=== PATIENT | female | born 1970 | race Caucasian/White ===

== ENCOUNTER 2017-07-28 19:26 | Inpatient (IN) | payer OTHER ==
[2017-07-28 20:07] LABS: Bilirubin Negative (Negative); Blood, Urine Small (Negative); Clarity CLEAR (Clear); Glucose, Urine (Dipstick) Negative (Negative); Leukocyte Small (Negative); Nitrite Negative (Negative); Protein, Urine (Dipstick) Negative (Neg-Trace); Specific Gravity, Urine 1.035 (1.002-1.036); Urobilinogen 0.2 mg/dL (0.2-1.0)
[2017-07-28 20:09] LABS: Bacteria/HPF 2+ HPF (None Seen); Hyaline Casts/LPF 0-3 HYALINE CAST LPF (0-3 Hyaline); Pathc Cast-AUWi Flag 0.13 (0-2.49)
[2017-07-28] MEDS ORDERED: Fentanyl 100 MCG/2 ML VIAL ONE (20:54)
[2017-07-28] MEDS ORDERED: Lorazepam 2 MG/ML VIAL SLOW IVP PRN (22:06)
[2017-07-28] MEDS ORDERED: cloNIDine 0.1 MG TAB PO PRN (22:06)
[2017-07-28] MEDS ORDERED: Calcium Carbonate 500 MG ChewTAB PO PRN (22:06)
[2017-07-28] MEDS ORDERED: Ondansetron PF 4 MG/2 ML Vial IVP PRN (22:06)
[2017-07-28] MEDS ORDERED: Loratadine 10 MG TAB PO PRN (22:06)
[2017-07-28] MEDS ORDERED: traMADol HCl 50 MG TAB PO PRN (22:06)
[2017-07-28] MEDS ORDERED: Benzonatate 100 MG CAP PO PRN (22:06)
[2017-07-28] MEDS ORDERED: Diabetic Tussin 200 MG/10 ML UDCUP PO PRN (22:06)
[2017-07-28] MEDS ORDERED: Mag-Al 1200 mg/1200 mg/30 ML UDCUP PO PRN (22:06)
[2017-07-28] MEDS ORDERED: Famotidine/PF 20 mg/2ml Vial SLOW IVP PRN (22:06)
[2017-07-28] MEDS ORDERED: Acetaminophen 325 MG TAB PO PRN (22:06)
[2017-07-28] MEDS ORDERED: Nitroglycerin 0.4 MG TAB (25 Tab Bottle) SL PRN (22:06)
[2017-07-28] MEDS ORDERED: hydrALAZINE 20 MG/ML VIAL SLOW IVP PRN (22:06)
[2017-07-28] MEDS ORDERED: HYDROmorphone 0.5 MG/0.5 ML SYRINGE ONE (22:28)
--- NOTE | 2017-07-28 22:37 | RAD ---
KUB AND UPRIGHT AND PA CHEST: 07/28/17 HISTORY: Abdominal pain and distention. There is air within some slightly distended small bowel loops but also air within the colon. No free air. Postoperative changes which appear to be related to gastric bypass and cholecystectomy are seen. PA CHEST: Heart size and mediastinum are within normal limits. The lungs are clear of any infiltrative process. IMPRESSION: Fairly minimal small bowel distention, also with air within the colon. This is not definitively an ob structed pattern. If there is clinical suspicion of obstruction, CT may be helpful in further assessm ent. POS: ISABEL
[2017-07-29] MEDS ORDERED: Ketorolac Tromethamine 30 MG/ML VIAL IVP SCH (01:00)
[2017-07-29] MEDS: Promethazine HCl 25 MG/ML VIAL SLOW IVP PRN ×4 (01:28→22:11)
[2017-07-29 09:48] LABS: Folate (Folic Acid) 12.4 ng/mL (7.0-31.4)
[2017-07-29] MEDS: Pantoprazole 40 MG VIAL IVP SCH ×2 (11:15→21:57)
--- NOTE | 2017-07-29 13:12 | HP ---
CHIEF COMPLAINT: Epigastric abdominal pain. HISTORY OF PRESENT ILLNESS: A 46-year-old female, who underwent a laparoscopic Coco-en-Y gastric byp ass at [facility] in [place] [address] Jefferson. She went from 265 pounds to 89 pounds. S he had postoperative hyperemesis, postoperative excess weight loss, and severe dysphagia. At 6 month s postop, she was found to have an internal hernia, which was repaired laparoscopically. She then schuster d a laparoscopic cholecystectomy and umbilical hernia surgery. She then developed multiple bowel obs tructions and had to have exploratory laparotomy. She was found to have an intussusception and that was treated through a laparotomy. She also had an appendectomy, this was all done at [facility]. Then, Dr. Davis at [facility] in [place] found 8 abdominal wall surgeries, it was juan ated with mesh 1.5 years ago. She has had chronic nausea, chronic abdominal pain. She is not vomiti ng. She is passing flatus. She denies dark urine, fever or chills. PAST MEDICAL HISTORY: Hypertension and neuropathy. PAST SURGICAL HISTORY: section x4 and all the surgeries above. MEDICATIONS: Lisinopril 40 mg, hydrochlorothiazide 25 mg, amlodipine, promethazine 25 mg, and gabape ntin 800 mg t.i.d. ALLERGIES: No known drug allergies. SOCIAL HISTORY: She is . She smokes half a pack per day and no alcohol. PHYSICAL EXAMINATION: VITAL SIGNS: Afebrile, pulse 61, blood pressure 119/78. GENERAL: A thin female, awake, alert, in no apparent distress. HEENT: Unremarkable. LUNGS: Clear. HEART: Regular rate and rhythm. ABDOMEN: Soft, but tender in the epigastric area. I do not feel any recurrent hernias. LABORATORY AND X-RAY FINDINGS: Her white count is 10.9, hemoglobin and hematocrit 10 and 31, platele t count 288. Electrolytes are fine. Alkaline phosphatase was elevated at 138. CT scan of abdomen w as reviewed with Dr. Morrissey, it was performed at the [facility] in [place], it showed 1 lo op of bowel, distended bowel in the pelvis that looked like it had some fecalization of material with in and it was somewhat distended, but there was air in it. Other than that, there was no evidence of obstruction. There is a lot of air in the colon. No free air, no free fluid. ASSESSMENT: 1. Post-gastric bypass patient, who is smoking, is at high risk for gastrojejunostomy ulceration tere y likely cause of her epigastric pain. 2. High chance she may be vitamin deficient, which may have resulted in neuropathy, possible thiamin e deficiency. 3. This abnormal loop of bowel, which is in the pelvis, does not appear to be symptomatic at this ti me. She may have a bacterial overgrowth in this loop, it may need to be repaired at some point in th e future. PLAN: Stop smoking. Recommend EGD. Protonix. Check thiamine level, but also infuse thiamine. I r ecommended the patient to go to see Dr. Lele Valentine at [facility] in [place].
[2017-07-29] MEDS ORDERED: Lidocaine 1% PF 5 ML VIAL ONE (14:31)
[2017-07-29] MEDS ORDERED: PROPOFOL 200 MG/20 ML VIAL ONE (14:31)
[2017-07-29] MEDS ORDERED: Midazolam HCl 2 mg/2 ml Vial ONE (15:57)
[2017-07-29] MEDS ORDERED: Fentanyl 100 MCG/2 ML VIAL ONE (16:06)
--- NOTE | 2017-07-30 | OP ---
DATE OF PROCEDURE: 07/29/2017 OPERATIVE PROCEDURE: Esophagogastrojejunoscopy. PREOPERATIVE DIAGNOSIS: Abdominal pain. POSTOPERATIVE DIAGNOSIS: Normal exam. PROCEDURE IN DETAIL: The patient was placed in the left lateral position and was given sedation by A nesthesia Department. A Pentax video gastroscope under direct vision was passed down the oropharynx, past the gastroesophageal junction, into the small bowel. The patient has had a previous gastric by pass. The esophageal mucosa appeared normal throughout the stomach. The GE junction, no pathology. The gastric remnant is very small and appears healthy. The anastomotic area appears very healthy. No inflammation, any mucosal erythema, or any ulcers. The exam was completely normal. The scope was advanced down the small bowel as far as possible. The mucosa appeared normal throughout the small b owel. The small bowel decompressed and the scope removed. IMPRESSION: Negative exam. It is possible her abdominal pain may be because of her postoperative ad hesions versus irritable bowel syndrome.
--- NOTE | 2017-07-30 00:11 | CON ---
DATE OF CONSULTATION: 07/29/2017 REFERRING PHYSICIAN: Zbigniew Patel M.D. REASON FOR CONSULTATION: Abdominal pain. HISTORY OF PRESENT ILLNESS: Ms. Keyana Nielsen is a 46-year-old female with multiple intra abdominal surgeries. The patient has had a gastric bypass many years ago followed by hernia repair, appendectomy, cholecystectomy, and also had intussusception which was managed laparoscopically. The patient also has had hernia surgery and the most recent one was 18 months ago at [facility]. The patient states that she had had 8 hernias and had surgery with a wire mesh. The mandie ent developed abdominal pain a couple of days ago. The pain is over the midepigastric area. The gina n is very severe. She has nausea, but no vomiting. She also had some flu recently and has been havi ng severe coughing spells. The patient thinks that the hernia is coming back again that is causing t he pain. The patient went to the ER in [place] and has some CAT scan done and was told to have small -bowel obstruction. She had upper abdominal series done here. The abdominal series does not show an y bowel obstruction. She does have mildly dilated small bowel but at the same time she has air in th e colon. The patient has had this abdominal pain off and on and recurrent episodes for the last 48 h ours. I was asked to see the patient by Dr. Patel for possible EGD because of the location of abdomi nal pain, recent possibility of anastomotic ulcer. ALLERGIES: None. SOCIAL HISTORY: The patient smokes one half pack of cigarettes per day. No history of drug abuse. No history of alcohol abuse. MEDICAL ILLNESSES: 1. Hypertension. 2. Neuropathy. SURGERIES: 1. x4. 2. Gastric bypass. 3. Appendectomy. 4. Cholecystectomy. 5. Reduction of intussusception laparoscopically. 6. Recent hernia surgery for abdominal hernia with mesh placement. MEDICATIONS: Include lisinopril, hydrochlorothiazide, promethazine, and gabapentin. REVIEW OF SYSTEMS: A 10-point system reviewed. Constitutional: No history of fever, no weight loss . No diarrhea. Respiratory: No history of chronic cough, hemoptysis, dyspnea. Cardiovascular: No chest pain, no palpitation, no exertional dyspnea, orthopnea or PND. Gastrointestinal: As in histo ry of present illness. Genitourinary, musculoskeletal, endocrine, hematological: Unremarkable. PHYSICAL EXAMINATION: GENERAL: The patient appears very comfortable, in no acute distress. VITAL SIGNS: She is afebrile. Pulse is 61, blood pressure is 120/80. HEENT: Conjunctivae clear. NECK: Supple. No adenitis or thyromegaly noted. CARDIOVASCULAR: First and second heart sounds normal. LUNGS: Clear to auscultation. ABDOMEN: Soft and nondistended. There is some fullness over the epigastric area. There is a slight bulge when she is made to cough and also raise the head, but I did not definitely see any hernia the re. Abdomen exam is actually very benign. Bowel sounds are normal. EXTREMITIES: Reveal no edema. LABORATORY: Vitamin B12 of 168, folate 12.40. Urinalysis, 11-20 WBCs, 7-10 RBCs. An abdominal x-ra y done here shows no obstructive pattern. CLINICAL IMPRESSION: Abdominal pain, etiology unclear. Her abdominal exam is very benign. At least , she has no bowel obstruction. It is possible her pain may be because of previous surgeries and adh esions. Dr. Patel seems to think that there could be a possibility of anastomotic ulcer. I did doug k to Ms. Nielsen about having EGD and she is already n.p.o. I will plan for EGD later on today and nai damon further recommendations.
--- NOTE | 2017-07-30 02:11 | CON ---
DATE OF CONSULTATION: 07/29/2017 PRESENTING COMPLAINT: Abdominal pain. HISTORY OF PRESENT ILLNESS: This is a 46-year-old female with a past medical history of gastric bypass surgery, intussusception, hypertension, and current tobacco abuse, who presents to the emergency room with 3 days of stabbing supraumbilical abdominal pain rated 10/10, did not radiate, it is constant with no aggravating or relieving factors; however, it was relieved by given pain medications in the emergency room. She also reports some nausea, although states this is unchanged from a baseline, but there was no vomiting, no fevers or chills. She reports she still passes some flatus. At the emergency room, vital signs were stable. Labs revealed low vitamin B12, normal folate, urinalysis was largely unremarkable and the patient was asymptomatic. Also, she had acute abdomen series which showed fairly minimal bowel distention also with air in the colon with nondefinite obstructive pattern. Medicine was consulted to manage her medical conditions while she was admitted for possible bowel obstruction. She was seen by a general surgeon today who reported the patient is at risk for gastrojejunostomy ulceration due to her continued smoking. Recommended the patient should get an EGD and consulted Gastroenterology. REVIEW OF SYSTEMS: Constitutional: Denies fevers or chills. HEENT: Denies headaches, changes in vision, or congestion. Cardiovascular: Negative. Respiratory: Negative. Gastrointestinal: Per HPI. Genitourinary: Negative. Musculoskeletal: Moving all extremities spontaneously. Allergy/Immunology: Negative. Hematology: Negative. Neurological: Negative. Skin: Denies rashes or lesions. PHYSICAL EXAMINATION: VITAL SIGNS: Patient is afebrile and vital signs are within normal limits. GENERAL: Not in acute distress. Lying comfortably in bed. HEENT: Normocephalic, atraumatic, EOMI, PERRLA. Moist mucous membranes. LUNGS: Clear to auscultation bilaterally with no wheezes or rales. CARDIOVASCULAR: Regular rate and rhythm with no murmurs, rubs, or gallops. ABDOMEN: Soft with tenderness in the epigastric area, has a small protrusion above the umbilicus, which seems to be her old hernia. LABORATORY AND DIAGNOSTIC DATA: WBC 10.9, hemoglobin 10, platelet count 288. Electrolytes with no abnormalities, elevated alkaline phosphatase at 138. She had a CT scan done at the previous hospitalization, which showed one loop of bowel distended, bowel in the pelvis that looked like it had some fecalization of material within and somewhat distended, there was air in it. Other than that , there was no evidence of obstruction (General Surgery interpretation). ASSESSMENT AND PLAN: 1. Hypertension. We will ensure blood pressure is controlled. We will start the patient on her home regimen of amlodipine 10 mg daily, and hydrochlorothiazide 25 mg as well as lisinopril 40 mg daily. 2. Status post bypass surgery with possible obstruction. This has been ruled out by General Surgery. She has epigastric pain and will undergo EGD by GI. 3. We will continue follow with you. Do not hesitate to call us if you have any questions. MTDD
[2017-07-30] MEDS: Pantoprazole 40 MG VIAL IVP SCH (08:44)
[2017-07-30] MEDS: Promethazine HCl 25 MG/ML VIAL SLOW IVP PRN (08:45)
[2017-07-30 12:32] VITALS: BP 119/80; TEMP 98.1
--- NOTE | 2017-07-30 22:46 | DIS ---
DISCHARGE DIAGNOSIS: Epigastric pain of unknown etiology. PROCEDURES DURING ADMISSION: CT scan of abdomen and pelvis esophagogastroduodenoscopy. HOSPITAL COURSE: The patient was admitted, given IV fluids, made n.p.o. CT scan had shown an isolat ed loop down the pelvis, but her main complaints were epigastric pain. She was treated with Protonix for a presumed ulcer. She was also given multivitamins. The EGD was totally unremarkable. She had had a previous gastric bypass. After the EGD, was started on regular diet, she is tolerating well. Bowels are functioning. She is discharged home on some tramadol and Protonix. She will follow up w ith her primary care physician.
== END 2017-07-30 15:03 | disposition home or self-care (01) | DRG 392 ==
LOC: ERS 19:26 → SJJU 22:00
PROVIDERS: ADMIT Surgery; ATTEND Surgery
PROC: 0DJ08ZZ Inspection of Upper Intestinal Tract, Via Natural or Artificial Opening Endoscopic (ICD-10-PCS; principal; 2017-07-29)
DX: R10.13 Epigastric pain (principal); E51.9 Thiamine deficiency, unspecified; Z98.84 Bariatric surgery status; Z72.0 Tobacco use; I10 Essential (primary) hypertension
CPT/HCPCS: 36415; 74022; 81003; 81015; 82607; 82746; 83605; 84425; 96361; 96374; 96375; 99406; C9113; J1170; J1885; J2001; J2250; J2270; J2550; J2704; J3010; J3411; J7050

== ENCOUNTER 2017-09-18 00:41 | Inpatient (IN) | payer OTHER ==
[2017-09-18] MEDS ORDERED: Promethazine HCl 25 MG/ML VIAL ONE (01:55)
[2017-09-18] MEDS ORDERED: Fentanyl 100 MCG/2 ML VIAL ONE ×2 (01:59→02:28)
[2017-09-18] MEDS ORDERED: Fentanyl 100 MCG/2 ML VIAL SLOW IVP PRN ×2 (03:19→10:19)
[2017-09-18] MEDS ORDERED: Promethazine HCl 25 MG/ML VIAL SLOW IVP PRN (03:19)
[2017-09-18] MEDS ORDERED: Ondansetron ODT 4 MG TAB SL PRN (03:21)
[2017-09-18] MEDS ORDERED: Ondansetron HCl/PF 4 MG/2 ML Vial IVP PRN (03:21)
[2017-09-18 03:26] VITALS: BMI 24.2
[2017-09-18] MEDS: Lactated Ringer's 1,000 ML IV SCH ×2 (03:41→11:59)
[2017-09-18] MEDS ORDERED: cefTRIAXone\\ROCEPHIN 1 GM, Syringe 0.4 ML in Sterile Water 9.6 ML SLOW IVP SCH (04:00)
[2017-09-18] MEDS ORDERED: Magnesium Citrate 300 ML BOT PO SCH (09:45)
[2017-09-18] MEDS ORDERED: Fleet Enema 133 ML BOT PR SCH (09:45)
--- NOTE | 2017-09-18 09:49 | HP ---
CHIEF COMPLAINT: Abdominal pain, chronic, worsened recently. HISTORY OF PRESENT ILLNESS: This is a 46-year-old female who underwent laparoscopic gastric bypass 1 0 years ago in [place], [place] by Dr. Jefferson who now presents after being transferred from [facility] with severe abdominal pain associated with some mild vomiting. She states that she has schuster d 10 operations for issues related to her gastric bypass. Her main complaint now is severe pain in h er area of ventral incisional hernia repair. Pain is described as 01/26, sharp. It has been present for months. It is worse in the last few days, recently diagnosed with bronchitis. She is still smo aaron even though she has had a gastric bypass and symptoms are worse with coughing. States that she has daily bowel movements, but her CT scan shows significant amount of retained stool. There is cont rast into the distal small bowel on her CT scan with no obvious point of obstruction. She notes prev ious internal hernia repair as well as ventral incisional hernia repair, previous intussusception juan ated surgically. She states the vomiting was much worse than that. PAST MEDICAL HISTORY: Chronic pain, hypertension, GERD, chronic nausea, tobacco abuse. PAST SURGICAL HISTORY: As above. MEDICINES TAKEN AT HOME: Tramadol, Phenergan, hydrochlorothiazide, gabapentin, Norvasc, ranitidine, and lisinopril. ALLERGIES: No known drug allergies. SOCIAL HISTORY: She smokes daily. No alcohol, no other drugs. REVIEW OF SYSTEMS: Ten system review of systems otherwise negative unless described above. PHYSICAL EXAMINATION: VITAL SIGNS: Blood pressure is 90/64, pulse 68, respirations 18. She is afebrile. HEENT: Sclerae are anicteric. Oropharynx clear. NECK: No lymphadenopathy. CHEST: Clear. HEART: Regular rate and rhythm. ABDOMEN: Soft, tender mostly in the upper midline. She is bloated. She has active bowel sounds. EXTREMITIES: No obvious acute hernias. LABORATORY DATA: Labs from outside institution within normal limits. ASSESSMENT: 1. Chronic pain, status post gastric bypass with a history of multiple abdominal operations, now on gabapentin, chronic tramadol, recent increase in pain, but she had bronchitis. 2. CT scan shows no obvious internal hernia or obstruction, but shows significant retained stool. N o obvious recurrent ventral incisional hernia either. 3. The patient continues to smoke after gastric bypass which could be contributing to her chronic pa in as well. PLAN: We will give her an enema and give her magnesium citrate. I certainly think a big component o f her pain is being full of stool. Continue Rocephin for her bronchitis and add some neb treatments. If symptoms persist tomorrow, Gastrografin small bowel follow-through.
[2017-09-18 10:12] LABS: #Eosinphils 0.1 thou/uL (0.0-0.7); #Lymphocytes 1.5 thou/uL (1.20-3.40); #Monocytes 0.3 thou/uL (0.11-0.59); #Neutrophils 2.6 thou/uL (1.40-6.50); %Basophils 0.3 % (0.0-1.0); %Eosinophils 2.1 % (0.0-10.0); %Lymphocytes 33.8 % (21.0-51.0); %Monocytes 6.5 % (0.0-10.0); %Neutrophils 57.3 % (42.0-75.0); Hemoglobin 9.9 g/dL (12.0-16.0); Mean Corpuscular HGB CONC 31.7 g/dL (32.0-36.0); Mean Corpuscular Hemoglobin 28.7 pg (27.0-31.0); Mean Corpuscular Volume 90.8 fl (81.0-99.0); Mean Platelet Volume 7.7 fL (7.4-10.4); Platelet Count 206 thou/uL (130-400); RBC Distribution Width 19.2 % (11.5-14.5); Red Blood Cell (RBC) Count 3.44 mill/uL (4.20-5.40); White Blood Cell (WBC) Count 4.6 thou/uL (4.8-10.8)
[2017-09-18] MEDS ORDERED: Acetaminophen 1,000 MG in Premix Bag 1 BAG IVPB PRN (10:19)
[2017-09-18 10:32] LABS: Anion Gap 6 mmol/L (10-20); BUN (Urea Nitrogen) 15 mg/dL (7.0-18.7); Calc. Creatinine Clearance 66 mL/min (70-130); Carbon Dioxide 24 mmol/L (22-29); Chloride 110 mmol/L (98-107); Estimated GFR-MDRD 65; Glucose 78 mg/dL (70-105); Potassium 4.3 mmol/L (3.5-5.1); Sodium 136 mmol/L (136-145)
[2017-09-18] MEDS ORDERED: Pantoprazole 40 MG VIAL IVP SCH (10:45)
[2017-09-18] MEDS: Nicotine 14 MG PATCH TD SCH (11:15)
[2017-09-18] MEDS ORDERED: HYDROcodone/Acetaminophen 10/325 mg Tablet PO PRN (22:34)
[2017-09-18] MEDS: HYDROcodone/Acetaminophen 10/325 mg Tablet PO PRN (23:10)
[2017-09-18] MEDS: Promethazine 25 MG TAB PO PRN (23:10)
[2017-09-19 05:36] LABS: #Basophils 0.1 thou/uL (0.0-0.2); #Eosinphils 0.1 thou/uL (0.0-0.7); #Monocytes 0.4 thou/uL (0.11-0.59); #Neutrophils 2.8 thou/uL (1.40-6.50); %Basophils 1.1 % (0.0-1.0); %Eosinophils 1.8 % (0.0-10.0); %Monocytes 7.3 % (0.0-10.0); %Neutrophils 52.8 % (42.0-75.0); Hemoglobin 9.7 g/dL (12.0-16.0); Mean Corpuscular HGB CONC 32.1 g/dL (32.0-36.0); Mean Corpuscular Hemoglobin 28.9 pg (27.0-31.0); Mean Corpuscular Volume 90.1 fl (81.0-99.0); Mean Platelet Volume 7.7 fL (7.4-10.4); Platelet Count 214 thou/uL (130-400); RBC Distribution Width 18.9 % (11.5-14.5); Red Blood Cell (RBC) Count 3.35 mill/uL (4.20-5.40); White Blood Cell (WBC) Count 5.4 thou/uL (4.8-10.8)
[2017-09-19 06:02] LABS: Anion Gap 7 mmol/L (10-20); BUN (Urea Nitrogen) 11 mg/dL (7.0-18.7); Calc. Creatinine Clearance 67 mL/min (70-130); Calcium 8.5 mg/dL (7.8-10.44); Carbon Dioxide 23 mmol/L (22-29); Chloride 112 mmol/L (98-107); Estimated GFR-MDRD 66; Glucose 84 mg/dL (70-105); Potassium 4.3 mmol/L (3.5-5.1); Sodium 138 mmol/L (136-145)
[2017-09-19] MEDS: Promethazine 25 MG TAB PO PRN ×2 (06:26→11:32)
[2017-09-19] MEDS: HYDROcodone/Acetaminophen 10/325 mg Tablet PO PRN ×2 (06:26→11:32)
--- NOTE | 2017-09-19 08:24 | PRG ---
DATE OF SERVICE: 09/19/2017 Ms. Nielsen's pain is unchanged, it is midepigastric, feels like a stretching tearing type pain. She has been going down to smoke. She refused the nicotine patch. Tolerating liquids. Her mag citrate an enema only produced a small amount of stool. PHYSICAL EXAMINATION: VITAL SIGNS: Blood pressure is 122/82, pulse 69. She is afebrile, respirations 18. CHEST: Bilateral coarse. HEART: Regular rate and rhythm. ABDOMEN: Soft, it is distended, but no obvious hernia. No guarding or rebound. LABORATORY DATA: White blood cell count is 5, hemoglobin is slightly low at 9.7, platelet count is 2 14. Sodium is 138, potassium 4.3, creatinine 0.92. ASSESSMENT: 1. Status post gastric bypass with chronic pain, multiple abdominal operations performed in [place]. For some reason she was transferred here from [facility] for this acute event. 2. History of likely chronic anemia. Unsure if this represents a vitamin deficiency. I have ordere d iron, vitamin B1, and vitamin B12 levels to be drawn. She is also getting get repleted with a B12 shot and B1 intravenously daily while she is here. 3. Tobacco abuse. The patient is counseled that smoking status post gastric bypass leads to bypass failure, fistulas, chronic gastritis, ulcer disease at staple lines and failure to do well. She also understands that she has to take vitamins every day for the rest of her life or could develop signif icant vitamin deficiencies. PLAN: Gastrografin or barium small bowel follow through today to evaluate her anatomy. That will pr obably likely help with her significant retained stool that she has in her colon on CT scan. Her blo ating is almost all related to the colon. This does not seem to be a small-bowel obstruction, then w nelson will convert outpatient management.
[2017-09-19 08:42] LABS: Ferritin 29.85 ng/mL (10-291); Vitamin D, 25 Hydroxy 7.5 ng/ml (> 30.0)
[2017-09-19] MEDS ORDERED: Thiamine HCl 200 MG/2 ML VIAL SLOW IVP SCH (09:00)
[2017-09-19] MEDS ORDERED: Lisinopril 20 MG TAB PO SCH (09:00)
[2017-09-19] MEDS ORDERED: Amlodipine 10 MG TAB PO SCH (09:00)
[2017-09-19] MEDS ORDERED: Cyanocobalamin 1000 MCG/ML VIAL IM SCH (09:00)
[2017-09-19] MEDS ORDERED: Pantoprazole 40 MG VIAL IVP SCH (09:00)
[2017-09-19] MEDS: Gabapentin 400 MG CAP PO SCH ×2 (09:54→16:08)
[2017-09-19] MEDS: Nicotine 14 MG PATCH TD SCH (10:13)
--- NOTE | 2017-09-19 10:36 | RAD ---
GASTROGRAFIN SMALL BOWEL: HISTORY: Ten abdominal surgeries. Evaluate for bowel obstruction. Abdominal pain. COMPARISON: None. 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 There is fecal materi al in a nondistended, nondilated colon. Post surgical changes in epigastric region are identified. TECHNIQUE: Gastrografin was administered and opacifies multiple normal caliber small bowel loops. Contrast opac ifies the colon on the 30 minute image. IMPRESSION: No evidence of high grade obstruction. POS: ÁNGELA
[2017-09-19 16:35] VITALS: BP 148/99; TEMP 97.7
--- NOTE | 2017-09-20 15:13 | DIS ---
ADMITTING DIAGNOSES: Small-bowel obstruction, abdominal pain. POSTOPERATIVE DIAGNOSES: Small-bowel obstruction, abdominal pain. PROCEDURES: None. CONDITION AT DISCHARGE: Improved. STAFF: Jericho Ruano M.D. HOSPITAL COURSE: The patient was admitted with abdominal pain. She has history of multiple abdomina l operations after gastric bypass done in [place]. She has had revisions several times. This is the first time I had met her. She presented with severe abdominal pain, asking for lots of narcotic gina n medicine. She was admitted to the hospital, small bowel follow through showed normal anatomy post- gastric bypass with no obvious obstruction. She was discharged home. She could have more of a GI wo rkup as an outpatient if she continues to have pain. See hospital chart for details of hospitalization.
== END 2017-09-19 16:53 | disposition home or self-care (01) | DRG 389 ==
LOC: ERS 00:41 → SURG B 02:04
PROVIDERS: ADMIT Internal Medicine; ATTEND Internal Medicine
DX: K56.609 Unspecified intestinal obstruction, unspecified as to partial versus complete obstruction (principal); N39.0 Urinary tract infection, site not specified; D69.6 Thrombocytopenia, unspecified; R11.10 Vomiting, unspecified; I10 Essential (primary) hypertension; D64.9 Anemia, unspecified; F17.210 Nicotine dependence, cigarettes, uncomplicated; Z98.84 Bariatric surgery status; G89.29 Other chronic pain; K21.9 Gastro-esophageal reflux disease without esophagitis; J40 Bronchitis, not specified as acute or chronic
CPT/HCPCS: 36415; 74250; 80048; 82306; 82607; 82728; 83605; 84425; 85025; 94640; 96361; 96374; 96375; 99406; A4216; C9113; J0696; J2405; J2550; J3010; J3411; J3420; J7620

== ENCOUNTER 2018-05-26 01:42 | Observation (INO) | payer OTHER ==
[2018-05-26] MEDS ORDERED: Morphine 2 MG/ML SYRINGE ONE (02:31)
[2018-05-26] MEDS ORDERED: Morphine 4 MG/ML VIAL ONE ×2 (02:31→15:48)
[2018-05-26] MEDS ORDERED: hydrALAZINE 20 MG/ML VIAL ONE (02:56)
[2018-05-26] MEDS ORDERED: Pantoprazole 40 MG VIAL ONE (02:56)
[2018-05-26] MEDS ORDERED: Ondansetron PF 4 MG/2 ML Vial ONE ×2 (02:56→12:43)
[2018-05-26] MEDS ORDERED: Morphine 4 MG/ML VIAL SLOW IVP PRN (04:58)
[2018-05-26] MEDS ORDERED: Ondansetron ODT 4 MG TAB SL PRN (04:59)
[2018-05-26] MEDS ORDERED: Ondansetron PF 4 MG/2 ML Vial IVP PRN (04:59)
[2018-05-26] MEDS ORDERED: Ketorolac Tromethamine 30 MG/ML VIAL IVP PRN (04:59)
[2018-05-26] MEDS ORDERED: Sodium Chloride 0.9% 1,000 ML IV SCH (04:59)
[2018-05-26 05:08] VITALS: BMI 25.1
[2018-05-26] MEDS ORDERED: Promethazine 25 MG TAB PO PRN (05:31)
[2018-05-26] MEDS: Promethazine 25 MG TAB PO PRN ×2 (05:43→16:54)
[2018-05-26] MEDS: HYDROcodone/Acetaminophen 10/325 mg Tablet PO PRN ×4 (05:43→21:26)
[2018-05-26] MEDS: Sodium Chloride 0.9% 1,000 ML IV SCH ×3 (05:44→22:14)
[2018-05-26] MEDS: Morphine 4 MG/ML VIAL SLOW IVP PRN ×3 (05:45→21:50)
[2018-05-26] MEDS: cloNIDine 0.1 MG TAB PO SCH ×3 (08:06→21:24)
[2018-05-26] MEDS: Gabapentin 400 MG CAP PO SCH ×3 (08:07→21:25)
[2018-05-26] MEDS: Ferrous Sulfate 325 MG TAB PO SCH (08:07)
[2018-05-26] MEDS: Furosemide 40 MG TAB PO SCH (08:07)
[2018-05-26] MEDS: Lisinopril 20 MG TAB PO SCH (08:08)
[2018-05-26] MEDS: Famotidine 20 MG TAB PO SCH ×2 (08:08→21:26)
--- NOTE | 2018-05-26 12:10 | CON ---
DATE OF CONSULTATION: 05/26/2018 REASON FOR CONSULTATION: Abdominal pain, right ureteral stone. HISTORY OF PRESENT ILLNESS: Ms. Nielsen is a 47-year-old female, whose prior history includes gastric bypass surgery approximately 11 years ago. She has chronic abdominal pain. She has been dealing with some abdominal pain for the last couple of weeks and was diagnosed with right ureteral stone. She was first diagnosed approximately 3 or 4 weeks ago. She presented back to the emergency room in [place] and a CT scan was performed and demonstrates persistent right upper 8 mm stone. She was transferred to [facility]. She denies fevers or chills. She denies any dysuria or gross hematuria. PAST MEDICAL HISTORY: Chronic abdominal pain, gastroesophageal reflux disease. PAST SURGICAL HISTORY: Gastric bypass 11 years ago, multiple abdominal surgeries as a result of complications and states she currently has hernias. She has had x4. SOCIAL HISTORY: She is . She has four children. She smokes half pack of cigarettes per day. FAMILY HISTORY: Diabetes, hypertension, liver cancer. CURRENT MEDICATIONS: 1. Clonidine. 2. Famotidine. 3. Iron. 4. Lasix. 5. Neurontin. 6. Hydrocodone. 7. Lisinopril. 8. Phenergan. ALLERGIES: NO KNOWN DRUG ALLERGIES. REVIEW OF SYSTEMS: RESPIRATORY: Denies any shortness of breath. CARDIOVASCULAR: Denies chest pain or palpitations. GASTROINTESTINAL: Please see history of present illness. GENITOURINARY: Please see history of present illness. NEUROLOGIC: Denies any stroke or TIA symptoms. PHYSICAL EXAMINATION: GENERAL: She is well-nourished, awake and alert. VITAL SIGNS: Temperature 97.8, pulse 83, respiratory rate 16, blood pressure 136/80. CHEST: Clear to auscultation. CARDIOVASCULAR: Regular rate and rhythm. ABDOMEN: Soft, nontender. No palpable masses. Liver and spleen not palpable. No abdominal tenderness noted. EXTREMITIES: No edema. IMPRESSION: Chronic abdominal pain with recent onset of new abdominal pain. CT scan demonstrates persistent right upper ureteral stone. I have discussed management option with her. I have recommended right ureteral stent placement. She understands and she required additional surgery after this for definitive management of the stone. She also understands that her pain could be from something other than the right ureteral stone and she will require additional intervention. She understands these risks, potential limitation, alternatives and wished to proceed. PLAN: Cystoscopy, right ureteral stent placement. Job ID: [id number]
[2018-05-26] MEDS ORDERED: Dexamethasone 20 MG/5 ML VIAL ONE (12:43)
[2018-05-26] MEDS ORDERED: PROPOFOL 200 MG/20 ML VIAL ONE (12:43)
[2018-05-26] MEDS ORDERED: Glycopyrrolate 0.2 MG/ML 5 ML SYRINGE ONE (12:43)
[2018-05-26] MEDS ORDERED: Lidocaine 1% PF 5 ML VIAL ONE (12:43)
[2018-05-26] MEDS ORDERED: Midazolam HCl 2 mg/2 ml Vial ONE (13:35)
[2018-05-26] MEDS ORDERED: Fentanyl 100 MCG/2 ML VIAL ONE ×2 (13:35→14:04)
[2018-05-26] MEDS ORDERED: Iothalamate Meglumine 60% 50 ML VIAL FS ONE (13:46)
[2018-05-26] MEDS ORDERED: CEFAZOLIN 2 GM/50 ML BAG ONE (14:14)
[2018-05-26] MEDS ORDERED: Morphine Sulfate 2 MG/ML SYRINGE SLOW IVP PRN (15:16)
[2018-05-26] MEDS ORDERED: Promethazine HCl 25 MG/ML VIAL SLOW IVP PRN (15:16)
[2018-05-26] MEDS ORDERED: Promethazine HCl 25 MG/ML VIAL IM PRN (15:16)
[2018-05-26] MEDS ORDERED: Ondansetron HCl/PF 4 MG/2 ML Vial IVP PRN (15:16)
[2018-05-26] MEDS ORDERED: HYDROmorphone 2 MG/ML VIAL SLOW IVP PRN (15:16)
[2018-05-26] MEDS ORDERED: Meperidine HCl/PF 25 MG/ML VIAL SLOW IVP PRN (15:16)
[2018-05-26] MEDS ORDERED: PACU-Morphine 4MG/ML VIAL SLOW IVP PRN (15:16)
[2018-05-26] MEDS ORDERED: Ketorolac Tromethamine 30 MG/ML VIAL ONE (15:48)
[2018-05-26] MEDS ORDERED: Potassium Chloride 10 MEQ TAB PO SCH (21:00)
--- NOTE | 2018-05-26 21:03 | OP ---
DATE OF PROCEDURE: 05/26/2018 PREOPERATIVE DIAGNOSIS: Right ureteral stone. POSTOPERATIVE DIAGNOSIS: Right ureteral stone. PROCEDURES: Cystoscopy and right ureteral stent placement. ANESTHESIA: General. INDICATIONS: Ms. Nielsen is a 47-year-old female, who has recently diagnosed with a right ureteral stone. This was diagnosed at [facility] approximately 3 weeks ago. Her pain recurred and it was severe last time and she was again seen in [place] and transferred to [facility] in [place]. She was admitted and brought to the operative room for stent placement as her pain could not be controlled. DESCRIPTION OF PROCEDURE: The patient was given general anesthesia and IV antibiotics. She was sterilely prepped and draped in the lithotomy position. Cystoscope was passed into the bladder. Bladder examined in its entirety. There were no mucosal lesions. Right ureteral orifice was cannulated with a floppy tip guidewire, which was passed cephalad under fluoroscopic control. A 6 x 24 double-J stent was passed over the guidewire and coiled in the right renal pelvis and then the bladder was examined fluoroscopically and cystoscopically. The upper ureteral stone was manipulated into the kidney and could be seen fluoroscopically. The patient tolerated the procedure well. She was transferred from the operating room to recovery room in stable condition. COMPLICATION: None. ESTIMATED BLOOD LOSS: Minimal. Job ID: [id number]
[2018-05-27] MEDS: Sodium Chloride 0.9% 1,000 ML IV SCH ×2 (01:05→05:41)
[2018-05-27] MEDS: Morphine 4 MG/ML VIAL SLOW IVP PRN ×2 (01:05→09:36)
[2018-05-27] MEDS: HYDROcodone/Acetaminophen 10/325 mg Tablet PO PRN ×2 (01:52→08:10)
[2018-05-27 07:47] VITALS: BP 125/85; TEMP 98.3
[2018-05-27] MEDS: Ferrous Sulfate 325 MG TAB PO SCH (08:04)
[2018-05-27] MEDS: Famotidine 20 MG TAB PO SCH (08:04)
[2018-05-27] MEDS: Lisinopril 20 MG TAB PO SCH (08:04)
[2018-05-27] MEDS: Gabapentin 400 MG CAP PO SCH (08:04)
[2018-05-27] MEDS: cloNIDine 0.1 MG TAB PO SCH (08:05)
[2018-05-27] MEDS: Furosemide 40 MG TAB PO SCH (08:05)
[2018-05-27] MEDS: Promethazine 25 MG TAB PO PRN (08:10)
--- NOTE | 2018-05-29 11:52 | DIS ---
DATE OF ADMISSION: 05/26/2018 DATE OF DISCHARGE: 05/27/2018 ADMISSION DIAGNOSIS: Right ureteral stone. DISCHARGE DIAGNOSIS: Right ureteral stone, status post right ureteral stent placement. HOSPITAL COURSE: The patient was seen in the emergency room on 05/26/2018. She was noted to have a rather large right upper ureteral stone causing right-sided flank pain. She was unable to tolerate the pain and so, urologic consultation was obtained. A right ureteral stent was placed on 05/26/2018 somewhat late in the evening. She was kept overnight for observation and remained afebrile overnight. She was discharged home on 05/27/2018, in stable condition. FOLLOWUP: She will follow up in our office for definitive stone treatment. Job ID: [id number]
--- NOTE | 2018-05-29 22:28 | EKG ---
Test Reason : Blood Pressure : / mmHG Vent. Rate : 075 BPM Atrial Rate : 075 BPM P-R Int : 134 ms QRS Dur : 080 ms QT Int : 448 ms P-R-T Axes : 047 058 045 degrees QTc Int : 500 ms Normal sinus rhythm Prolonged QT Abnormal ECG No previous ECGs available Confirmed by Mariella SAMSON ([id number]) on 05/29/2018 10:27:55 PM Referred By: DESI Confirmed By:Mariella SAMSON
== END 2018-05-27 12:01 | disposition home or self-care (01) ==
LOC: ERS 01:42 → SURG A 02:36
PROVIDERS: ADMIT Urology; ATTEND Urology
PROC: 0T768DZ Dilation of Right Ureter with Intraluminal Device, Via Natural or Artificial Opening Endoscopic (ICD-10-PCS; principal; 2018-05-26)
DX: N20.1 Calculus of ureter (principal); K21.9 Gastro-esophageal reflux disease without esophagitis; F17.210 Nicotine dependence, cigarettes, uncomplicated; G89.29 Other chronic pain; R10.9 Unspecified abdominal pain; I11.0 Hypertensive heart disease with heart failure; I50.9 Heart failure, unspecified; Z79.899 Other long term (current) drug therapy; Z98.84 Bariatric surgery status; Z98.890 Other specified postprocedural states
CPT/HCPCS: 76000; 90471; 90686; 93005; 93010; 96361; 96374; 96375; 96376; C1769; C9113; G0008; G0378; J0360; J1100; J1885; J2001; J2250; J2270; J2405; J2704; J3010; Q9961